=== PATIENT | female | born 1985 | race Caucasian/White ===

== ENCOUNTER 2021-03-30 18:05 | Emergency (ER) | payer BC ==
[~2021-03-30] VITALS: Ht 160 cm; Wt 70.0 kg
[~2021-03-30 18:05] MED LIST: FLEXERIL OR; NAPROSYN500 MG PO; ROBAXIN-750750 MG OR; TUBERSOL5 MG/0.1 M ID; ULTRAM50 M1 PO
[2021-03-30] MEDS ORDERED: CYMBALTA60 MG PO (18:48)
[2021-03-30] MEDS ORDERED: KLONOPIN0.5 MG PO (18:49)
[2021-03-30 19:50] VITALS: BP 131/90
== END 2021-03-30 19:50 | disposition home or self-care (01) | DRG 951 ==
LOC: ED 18:05
DX: Z20.822 Contact with and (suspected) exposure to COVID-19 (principal); F17.200 Nicotine dependence, unspecified, uncomplicated